=== PATIENT | male | born 1960 | race Caucasian/White ===

== ENCOUNTER 2022-06-02 07:50 | Outpatient (CLI) | payer BC, SELFPAY | END 2022-06-02 07:51 | disposition home or self-care (01) | LOC: INJ CL 07:51 | PROVIDERS: PCP Family Medicine; Visit Provider Family Medicine | DX: M53.3 Sacrococcygeal disorders, not elsewhere classified (principal) | CPT/HCPCS: 27096; J0702; Q9966 ==

== ENCOUNTER 2022-06-26 13:33 | Outpatient (CLI) | payer BC, SELFPAY ==
--- OUTSIDE RECORDS SUMMARY | 2022-06-26 13:36 | XMS_ITS | Clinical Summary ---
:1960 Author Organization [facility] [place] [address] Care Team Providers Name Role Phone Kwabena Redd MD Primary Care Provider [phone] Allergies Active Allergy Reactions Severity Noted Date Comments Citalopram Anxiety, Diaphoresis 05/28/2014 Homeopathic Products 02/28/2007 Nortriptyline Anxiety 04/25/2012 Sertraline Confusion 05/21/2014 Simvastatin Myalgia 03/21/2007 Medications Medication Sig Dispensed Refills Start End Status Date Date coenzyme q10 (CO Take 1 capsule by 0 12/14/19 Active Q-10) 100 mg Cap mouth once daily. 12 MULTIVIT-MINERALS Take 1 tablet by 0 Active /FA/LYCOPENE mouth once daily. (ONE-A-DAY MEN'S ORAL) traMADoL (ULTRAM) Take 1 Tablet (50 90 Tablet 0 12/08/19 Active 50 mg mg) by mouth 2 22 tabletIndications times daily if : Back pain needed for Pain. without radiation gabapentin Take 1 Capsule 180 capsule. 3 12/08/19 A ctive (NEURONTIN) 100 (100 mg) by mouth 22 mg once daily. Take capsuleIndication 3 capsule by s: RLS (restless mouth at bedtime legs syndrome) HYDROcodone-aceta Take 1 Tablet by 75 Tablet 0 12/08/19 Active minophen, 7.5-325 mouth 3 times 22 mg, (NORCO daily if needed 7.5-325) 7.5-325 for Pain. Max mg per acetaminophen tabletIndications dose: 4000mg in : Bulge of lumbar 24 hrs. disc without myelopathy, Lumbar facet arthropathy, Chronic midline low back pain without sciatica sildenafil Take 1 Tablet (50 30 Tablet 5 12/26/19 A ctive citrate (VIAGRA) mg) by mouth once 22 50 mg daily if needed tabletIndications for Erectile : Erectile Dysfunction. Take dysfunction of 30min to 4 hours organic origin before sexual activity. Max 100mg/24hr nitroglycerin Place 1 Tablet 25 Tablet 5 05/26/20 A ctive (NITROSTAT) 0.4 (0.4 mg) under 22 mg sublingual the tongue every tabletIndications 5 minutes if : Atypical chest needed for Chest pain Pain (x3 doses). KRILL/OM-3/DHA/EP Take 1 capsule by 0 05/12 12/10 Discontinued A/PHOSPHO/AST mouth once daily. 022 (*Med (MEGARED OMEGA-3 com plete/Regime KRILL OIL ORAL) n complete/L evel of care ch venus) Active Problems Problem Noted Date Lumbar facet arthropathy 05/09/2018 Bulge of lumbar disc without myelopathy 05/09/2018 Chest pain in adult 11/24/2017 FH: colon cancer 08/27/2014 Polymyalgia 10/08/2013 Pain medication agreement 11/22/2012 Polyp of colon Resolved Problems Problem Noted Date Resolved Date Chronic back pain greater than 3 months duration 10/08/2013 05/09/2018 No active medical problems 07/22/2011 05/09/2018 Encounters Date Type Specialty Care Team Description 06/25/2022 Travel 06/18/2022 Office Visit Daren Cortes, Musculo skeletal Problem (Follow up back pain, SI joint injection on 06/02/22) 06/18/2022 Travel 06/02/2022 Office Visit Daren Cortes Procedu re (Left SACROILIAC MD JOINT INJECTION ) 06/02/2022 Orders Only Scanner <No scans attac hed> 06/02/2022 Orders Only Scanner <No scans attac hed> 05/29/2022 Travel 05/28/2022 Travel 2022 Office Visit Kwabena Redd MD 2022 Telephone Daren Cortes Procedu re (LINNETTE order) 2022 Travel 04/17/2022 Telephone Kwabena Redd MD from Last 3 Months Immunizations Name Administration Dates Next Due HepA-HepB (Twinrix) 01/01/2014, 10/02/2013 Influenza, IIV3 (Age >=3 years) 08/17/2013, 09/06/2007 MMR 09/14/1992 Td, Preservative Free (age >= 7 Years) 02/22/2017 Tdap 09/06/2007 Zoster (Shingrix-RZV, recombinant) 12/06/2020 Family History Medical History Relation Name Comments GI Disease Brother 2 PUD Cancer Father lung Diabetes Father GI Disease Father PUD Heart Disease Father Hyperlipidemia Father Arthritis Mother Relation Name Status Comments Brother 1 Alive x5 Brother 2 Daughter 1 Alive Daughter 2 Alive Daughter 3 Alive Father (Age 79) Maternal Grandfather Maternal Grandmother Mother (Age 94) Paternal Grandfather Paternal Grandmother Sister 1 Alive Sister 2 Alive Social History Tobacco Use Types Packs/Day Years Used Date Former Smoker Cigarettes 1 10 Smokeless Tobacco: Never Used Tobacco Cessation: Counseling Given: Yes Comments: no longer has passive smoke ex posure Alcohol Use Standard Drinks/Week Comments Yes 0 (1 standard drink = 0.6 oz pure alcoho l) 4 drinks Alcohol Habits Answer Date Recorded How often do you have a drink containing 4 or more times a w [place] 10/01/2020 alcohol? How many drinks containing alcohol do you have 1 or 2 10/01/2020 on a typical day when you are drinking? How often do you have six or more drinks on one Not asked occasion? Comment: 4 drinks 12/08/2021 Sex Assigned at Date Recorded Not on file COVID-19 Exposure Response Date Recorded In the last 10 days, have you been in contact with No / Unsu re 06/18/2022 12:58 PM CDT someone who was confirmed or suspected to have Coronavirus/COVID-19? 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 Plan of Treatment Upcoming Encounters Date Type Specialty Care Team Description 06/26/2022 Office Visit Daren Cortes MD Arrived [address] [place], [place] [address] (Wo rk) Health Maintenance Due Date Last Done Comments COVID-19 vaccine series (#1) 1960 Fecal testing non-DNA 05/11/2019 05/11/2018, 02/16/2017, (FIT,FOBT,iFOBT) for age 45-75 03/07/2009 Zoster (shingles) series for age 0401/31/2021 12/06/2020 50+ (2 of 2) Influenza for age 50-64 06/11/2022 08/17/2013, 09/06/2007 BMI (ht and wt on same day) for 12/08/2022 12/08/2021, 02/03/2021, age 18+ 11/15/2020, Additional history exists Depression screening for age 12+ 12/09/2022 12/09/2021, , 12/08/2021, Additional history exists Colonoscopy through age 75 08/15/2023 08/15/2018, 9, 03/25/2009 Lipids for age 45-75 08/27/2025 08/27/2020, 07/22/2020, 10/28/2015, Additional history exists Tetanus booster 02/22/2027 02/22/2017, 09/06/2007 Tdap Completed 09/06/2007 Hepatitis C screening for age Completed 01/21/2016 18-79 Procedures Procedure Name Priority Date/Time Associated Diagnosis Comme nts AMB EPIDURAL Routine 06/26/2022 7:31 AM Bulge of lumbar disc STEROID INJECTION CDT without myelop athy Lumbar radiculop athy Chronic left SI joint pain SCAN-OPERATIVE/PROC 06/02/2022 12:00 AM R esults for this EDURE REPORT CDT procedure are i n the results section. SCAN-OPERATIVE/PROC 06/02/2022 12:00 AM R esults for this EDURE REPORT CDT procedure are i n the results section. from Last 3 Months Results SCAN-OPERATIVE/PROCEDURE REPORT (06/02/2022 12:00 AM CDT) Narrative This result has an attachment that is no t available. Scanner OTHER SCAN-OPERATIVE/PROCEDURE REPORT (06/02/2022 12:00 AM CDT) Narrative This result has an attachment that is no t available. Scanner OTHER from Last 3 Months Insurance Payer Benefit Plan / Subscriber ID Effective Phone Address T ype Group Dates [employer] WORKERS [employer] WORK[employer] COMP [id number] 2007-Pres [phone] [address] [id number] [address] [place] [address] CIGNA CIGNA HP [id number] 2013-Prese [address] [place] [address] [employer] [place] [id number] 2020-[place]se [address] [place] [address] (Work) [place] Personal/Family Self 1960 [id number] (Home) [place] [phone] (Work) [employer] Workers Comp Self [id number] (Home) [place] [id number] Advance Directives Latest Code Status on File Code Status Date Activated Date Inactivated Comments Full Code 08/15/2018 11:00 AM 08/15/2018 2:58 PM Code Status Discussion: Discussed Full Code 11/24/2017 6:16 PM 11/25/2017 2:35 PM Code Status Discussion: Not Discussed Care Teams Glycerin Operator Relationship Specialty Start Date End Date Kwabena Redd MD PCP - General Family Practice 10/15/20 [address] [address]
--- OUTSIDE RECORDS SUMMARY | 2022-06-26 13:36 | XMS_ITS ---
:1960 Author Care Team Providers Name Role Phone Eliana Cornejo Primary Care Provider Unavailable Allergies Code Code System Name Reaction Severity Status Onset NKDA ? Medications Name Status Start Date Stop Date ? ? amoxicillin 875 mg-potassium clavulanate 125 mg tablet Completed ? 06/10/2021 TAKE 1 TABLET BY MOUTH 2 TIMES DAILY WITH MEALS FOR 7 DAYS. atenolol 25 mg tablet Active ? Not availa ble doxycycline hyclate 100 mg tablet Completed ? 06/10/2021 TAKE 1 TABLET (100 MG) BY MOUTH 2 TIMES DAILY FOR 5 DAYS. gabapentin 100 mg capsule Active ? Not av ailable TAKE 3 CAPSULES BY MOUTH AT BEDTIME hydrochlorothiazide 12.5 mg capsule Active ? Not available hydrocodone 7.5 mg-acetaminophen 325 mg tablet Active ? Not available TAKE 1 TABLET BY MOUTH UP TO TWO TIMES A DAY NEEDED FOR PAIN. MAX 4000MG ACETAMINOPHEN PER 24 HOURS. nitroglycerin 0.4 mg sublingual tablet Active ? Not available tramadol 50 mg tablet Active ? Not availa ble TAKE 1 TABLET BY MOUTH EVERY 6 HOURS IF NEEDED Problems None recorded. Procedures None recorded. Results Lab Results Date Name Specimen Result Interpretation Description Value Range Status Address ? 06/10/2021 SARS CoV 2 Nose Normal Sars not not Final Qu est RNA (nasal Cov 2 detected detected Diagno stics (COVID-19), passage) RNA - W onoman Lopez QL, scientific research manager-PCR, Lab: [address], [place] 06/10/2021 Rapid SARS Nose ? Result negative ? ? [facility] CoV 2 Ag, QL (nasal Urge nt Care [place], passage) Jaime t: [facility] [address], [place] Past Encounters 06/10/2021 Exposure to SARS-CoV-2 Eliana Cornejo PA: [address], [address], [place] [address], Ph. Social History None recorded. Vaccine List None recorded. Plan of Care Patient Instructions Discussed rapid covid results with varghese ent. Patient appears well, no immediate concerns. No concern for worrisome neuro logical involvement. Patient understands and agrees with treatment plan and instructi ons. Symptom management discussed to continue OTC cough/cold/analgesic medications as needed. Medication side effects discussed. Discussed risks? benefits? alternatives? side effects of treatment. If symptoms progress or worsen, patient should proce ed to the emergency room immediately. All questions answered. Reminders Provider Appointments None recorded. ? ? Lab None recorded. ? ? Referral None recorded. ? ? Procedures None recorded. ? ? Surgeries None recorded. ? ? Imaging None recorded. ? ? Vitals Blood Pressure 145/95 mm[Hg]
== END 2022-06-26 13:34 | disposition home or self-care (01) ==
LOC: INJ CL 13:34
PROVIDERS: PCP Family Medicine; Visit Provider Family Medicine
DX: M54.16 Radiculopathy, lumbar region (principal); M51.36 Other intervertebral disc degeneration, lumbar region
CPT/HCPCS: 62323; J0702; Q9966

== ENCOUNTER 2023-07-06 07:20 | Outpatient (CLI) | payer BC, SELFPAY ==
--- OUTSIDE RECORDS SUMMARY | 2023-07-06 07:22 | XMS_ITS | Continuity of Care Document ---
Author Name Unknown Organization [facility] Address [address] [place] [address] Phone Care Team Providers Care [employer] Art Teacher Name Role Phone Shirin Freire MD Unavailable Unavailable Allergies, Adverse Reactions, Alerts Substance Reaction Status Criticality No Known allergies Medications Medication Instructions Dosage Effective Dates (start - stop) Status Comments tramadol 50 mg Tab take 2 daily - Acti ve Vicodin 5 mg-500 mg Tab 3 daily - Active Procedures Procedure Date Office/Outpatient Visit, Est Routine Venipuncture CReactive Protein Assay Of Ck (Cpk) Rbc Sed Rate, Nonautomated Advance Directives Directive Yes / No Effective Date File Name No Information Encounters Encounter Description Practice Location Reason(s) For Visit Diagnoses Date Provider Providers Copied on Encounter [facility], [address], [place], [address], [place] tel:[phone] [facility] , No Information 2 Tani Carpio. [facility] [address], [place], [address], [place]. tel:[phone] Office/Outpa tient Visit, Est [facility], [address], [place], [address], [place] tel:[phone] [facility] , muscle aches (chief complaint) Myalgia and myositis, unspecified 2 Tani Carpio. [facility] [address], [place], [address], [place]. tel:[phone] Referring Provider: Shirin Valladares, [facility] [address], [place], [address]. tel:[phone] Family History Family Member Type Diagnosis Age At Onset Brother Problem (finding) unknown progressive fabiola rologic condition Payers Payer name Insurance type Covered green party ID Authorbro fay(s) Davonte [id number] Social History Type Description Quantity Date Captured Comments Sex Male Smoking Status No Information Chief Complaint And Reason For Visit No Information Reason For Referral Reason For Referral No Information History Of Present Illness Encounter Date Complaint History Of Prese nt Illness No Information Functional Status Date Functional Assessmen t No Information Instructions Date Instruction Additional Infor mation No Information Assessments Type Assessment Date No Information Patient Care Teams Name Effective Dates (start - stop) Status Members No Information
== END 2023-07-06 07:21 | disposition home or self-care (01) ==
LOC: INJ CL 07:21
PROVIDERS: PCP Family Medicine; Visit Provider Family Medicine
DX: M54.16 Radiculopathy, lumbar region (principal); M51.36 Other intervertebral disc degeneration, lumbar region; M53.3 Sacrococcygeal disorders, not elsewhere classified
CPT/HCPCS: 27096; 62323; J0702; Q9966

== ENCOUNTER 2024-02-01 12:50 | Outpatient (CLI) | payer BC, SELFPAY ==
--- OUTSIDE RECORDS SUMMARY | 2024-02-01 12:54 | XMS_ITS | Clinical Summary ---
Author Name Unknown Organization [facility] Address [place], [place] [address] Care Team Providers Care Doughnut Dough Mixer Name Role Phone Kwabena Redd MD Primary Care Provider Allergies Active Allergy Reactions Criticality Noted Date Comments Citalopram Anxiety,Diaphoresis 05/28/2014 Homeopathic Products 02/28/2007 Nortriptyline Anxiety 04/25/2012 Sertraline Confusion 05/21/2014 Simvastatin Myalgia 03/21/2007 Medications Medication Sig Dispensed Refills Start Date End Date Status MULTIVIT-MINERALS /FA/LYCOPENE (ONE-A-DAY MEN'S ORAL) Take 1 tablet by mouth once daily. Active sildenafil citrate (VIAGRA) 50 mg tabletIndications :Erectile dysfunction of organic origin Take 1 Tablet (50 mg) by mouth once daily if needed for Erectile Dysfunction. Take 30min to 4 hours before sexual activity. Max 100mg/24hr 30 Tablet 5 12/25/2021 Active nitroglycerin (NITROSTAT) 0.4 mg sublingual tabletIndications :Atypical chest pain Place 1 Tablet (0.4 mg) under the tongue every 5 minutes if needed for Chest Pain (x3 doses). 25 Tablet 5 2022 Active HYDROcodone-aceta minophen, 7.5-325 mg, (NORCO 7.5-325) 7.5-325 mg per tabletIndications :Bulge of lumbar disc without myelopathy,Lumbar facet arthropathy,Chron ic midline low back pain without sciatica Take 1 Tablet by mouth 3 times daily if needed for Pain. Max acetaminophen dose: 4000mg in 24 hrs. 75 Tablet 02/08/2023 Active aspirin (ECOTRIN) 81 mg enteric coated tablet Take 81 mg by mouth once daily. Active lovastatin (MEVACOR) 20 mg tabletIndications :History of diplopia Take 1 Tablet (20 mg) by mouth at bedtime. 30 Tablet 2 05/10/2023 Active traMADoL (ULTRAM) 50 mg tabletIndications :Back pain without radiation TAKE 1 TABLET (50 MG) BY MOUTH 2 TIMES DAILY IF NEEDED FOR PAIN. 90 Tablet 1 06/21/2023 Active celecoxib (CELEBREX) 200 mg capsuleIndication s:Lumbar facet arthropathy TAKE 1 CAPSULE (200 MG) BY MOUTH TWO TIMES DAILY WITH MEALS. 180 Capsule 1 08/27/2023 Active Active Problems Problem Noted Date Diagnosed Date Lumbar facet arthropathy 05/09/2018 Bulge of lumbar disc without myelopathy 05/09/20 18 Chest pain in adult 11/24/2017 FH: colon cancer 08/27/2014 Polymyalgia 10/08/2013 Pain medication agreement 11/22/2012 Polyp of colon Resolved Problems Problem Noted Date Diagnosed Date Resolved Date Chronic back pain greater th an 3 months duration 10/08/2013 05/09/2018 No active medical problems 07/22/2011 0 05/09/2018 Encounters Date Type Department Care Team Description 02/01/2024 Travel 01/27/2024 Telephone [facility] [address] [place], [place] [id number] Daren Cortes MD Injection (Medication) (Back) 11/25/2023 9:45 AM [employer] Ancillary Procedure [facility] [address] [place] [phone] 11/25/2023 9:15 AM [employer] Office Visit [facility] [address] [place] [address] Austin Chavez DPM Consult (Left heel pain) 11/25/2023 Travel from Last 3 Months Immunizations Name Administration Dates Next Due HepA-HepB (Twinrix) 01/01/2014,10/02/2013 Influenza, IIV3 (Age >=3 years) 08/17/2013,09/06 MMR 09/14/1992 Td, Preservative Free (age >= 7 Years) 7 Tdap 09/06/2007 Zoster (Shingrix-RZV, recombinant) 12/06/2020 Family [...] Tobacco Use Types Packs/Day Years Used Date Smoking Tobacco: Former Cigarettes 1 10 Smokeless Tobacco: Never Tobacco Cessation:Counseling Given: Yes Comments:no longer has passive smoke exposure Alcohol Use Standard Drinks/Week Comments Yes 0 (1 standard drink = 0.6 oz pur e alcohol) 4 drinks PHQ-2 Answer Date Recorded PHQ-2 TOTAL SCORE 1 04/12/2023 Social Connections Answer Date Recorded Frequency of Communication with Friends and Fami ly 0 04/12/2023 Financial Resource Strain Answer Date R ecorded Difficulty of Paying Living Expenses 3 04/12/2023 Difficulty of Paying Living Expenses Not on file 04/12/2023 Food Insecurity Answer Date Recorded Worried About Running Out of Food in the Last Ye ar 1 04/12/2023 Transportation Needs Answer Date Record ed Lack of Transportation (Medical) 1 04/12/2023 Housing Stability Answer Date Recorded Unable to Pay for Housing in the Last Year 1 04/12/2023 Sex and Gender Information Value Date Recorded Sex Assigned at Not on file Gender Identity Not on file Sexual Orientation Not on file Obstetrics History Last Filed Vital Signs Vital Sign Reading Time Taken Comments Blood Pressure 145/93 06/22/2023 10:15 AM CDT Pulse 77 11/25/2023 9:06 AM [employer] Temperature 36.6 ??C (97.9 ??F) 02/08/2023 8:05 AM CD T Respiratory Rate 20 2022 1:48 PM CDT Oxygen Saturation 96% 11/25/2023 9:06 AM [employer] Inhaled Oxygen Concentration - - Weight 88.5 kg (195 lb) 11/25/2023 9:06 AM [employer] Height 175.3 cm (5' 9) 06/22/2023 10:15 AM CDT Body Mass Index 28.8 06/22/2023 10:15 AM CDT Plan of Treatment Upcoming Encounters Date Type Department Care Team (Late st Contact Info) Description 02/01/2024 1:20 PM CDT Office Visit [facility] [address] [place] [phone] Daren Cortes MD [address] [place] [address] Arrived 03/30/2024 10:40 AM CDT Office Visit [facility] [address] [place] [address] Daren Cortes MD [address] [place] [address] Health Maintenance Due Date Last Done Comments HIV for age 15-65 1974 Zoster (shingles) series for age 50+ (2 of 2) 01/31/2021 12/06/2020 COVID-19 vaccine series (2022- season) 2023 Colonoscopy through age 75 08/15/202308/15, 03/25/2009, 03/25/2009 Depression screening for age 12+ 04/12/2024 04/12/2023, 12/09/2021, 12/08/2021, Additional history exists Influenza for age 50-64 06/11/2024 08/17/2013, 09/06 BMI (ht and wt on same day) for age 18+ 06/22/2024 06/22/2023, 05/10/2023, 04/12/2023, Additional history exists Lipids for age 45-75 08/27/2025 08/27/2020, 07/22/2020, 10/28/2015, Additional history exists Tetanus booster 02/22/2027 02/22/2017, 09/06/2007 Tdap Completed 09/06/2007 Hepatitis C screening for age 18-79 Completed 01/21/2016 Fecal testing non-DNA (FIT,FOBT,iFOBT) for age 45-75 Discontinued 05/11/2018, 02/16/2017, 03/07/2009 Pneumococcal series for age 6-64 Aged Out No longer eligible based on patient's age to complete this topic Procedures Procedure Name Priority Date/Time Associated Diagnosis Comments AMB EPIDURAL STEROID INJECTION Routine 02/01/2024 8:01 AM CDT Lumbar facet arthropathy Bulge of lumbar disc without myelopathy Chronic left SI joint pain Lumbar radiculopathy XR CALCANEUS 2 VIEWS LEFT Routine 11/25/2023 9:44 AM [employer] Pain of left heel LIPID PANEL W REFLEX MEASURED LDL Routine 08/27/2020 9:02 AM [employer] Cerebrovascular disease Sleep disturbance Memory problem Diplopia COLONOSCOPY 08/15/2018 11:02 AM [employer] OCCULT BLOOD IFOBT STOOL Routine 05/11/2018 8:00 AM CDT Screening for colon cancer ANTI HCV Routine 01/21/2016 2:48 PM CDT Need for hepatitis C screening test from Last 3 Months or Most Recently Relevant to Health Maintenance Results * XR CALCANEUS 2 VIEWS LEFT (11/25/2023 9:44 AM [employer]) Anatomical Region Laterality Modality CALCANEI, CALCANEUS L Computed R adiography Narrative 11/30/2023 10:13 AM [employer] INDICATION: Heel pain. TECHNIQUE: Three views left calcaneus. FINDINGS: No fracture or dislocation. No joint arthropathy or bone destruction. Minimal hyper trophic bone reaction at the Achilles tendon insertion. No soft tissue calcifications. Dictated by Barrington Chau MD @ 11/25/2023 9:59:03 AM Signed by: Barrington Chau MD @11/25/2023 9:59:03 AM (Electronic Signature) Austin Chavez DPM GENERAL IMAGING * LIPID PANEL W REFLEX MEASURED LDL (08/27/2020 9:02 AM [employer]) CHOLESTEROL,TOTAL 190 100 - 199 mg/dL 08/27/2020 9:42 AM [employer] [facility] TRIGLYCERIDES 89 <150 mg/dL 08/27/2020 9:42 AM [employer] [facility] HDL CHOLESTEROL 58 >40 mg/dL 0 9:42 AM [employer] [facility] NON-HDL CHOLESTEROL 132 <145 mg/dl 08/27/2020 9:42 AM [employer] [facility] CHOL/HDL RATIO 3.28 <4.50 08/27/2020 9:42 AM [employer] [facility] LDL CHOLESTEROL 114 <=130 mg/dL 08/27/2020 9:42 AM [employer] [facility] PROVIDER ORDERED STATUS RANDOM 08/27/2020 9:42 AM [employer] [facility] Blood BLOOD SPECIMEN / Unknown Venipuncture / Unknown 08/27/2020 9:02 AM [employer] 08/27/2020 9:04 AM [employer] Narrative Authorizing Provider Result Beny Dunham MD CHEMISTRY Performing Organization Address City/State/[facility] Co de Phone Number [facility] [address] [place] [address] * COLONOSCOPY (08/15/2018 11:02 AM [employer]) 08/15/2018 11:0 2 AM [employer] Narrative Transcriptions True Adan DO - 08/15/2018 11:41 AM CST Patient Name: Pillo Blow Procedure Date: 08/15/2018 Gender: Male Date of : 1960 Admit Type: Ambulatory Procedure: Colonoscopy Proceduralist: True Adan MD [facility] Indications/Pre-Op Diagnosis: Screening for colorectal malignant neoplasm, Last colonoscopy 10 years ago Medications: Propofol per Anesthesia Procedure Description: The patient had risks, benefits and alternatives explained to andgave informed consent. The patient had a stable cardiopulmonary status and judged an adequate candidate for conscious sedation. The colonoscope was passed through the anus and advanced to thececum, identified by appendiceal orifice and ileocecal valve. Thecolonoscopy was performed without difficulty. The patient tolerated the procedure well. The quality of the bowel preparation was good. The ileocecal valve, appendiceal orifice, and rectum were photographed. Complications: No immediate complications. Estimated Blood Loss & Specimen: Estimated blood loss: none. Specimen collected - Yes and sent to Laboratory Findings: A 5 mm polyp was found in the hepatic flexure. The polyp was sessile. The polyp was removed with a hot snare. Resection and retrieval were complete. Verification of patient identification for the specimen was done. Estimated blood loss was minimal. Non-bleeding internal hemorrhoids were found during retroflexion. The hemorrhoids were Grade II (internal hemorrhoids that prolapse butreduce spontaneously). Impressions/Post-Op Diagnosis: - One 5 mm polyp at the hepatic flexure, removed with a hot snare. Resected and retrieved. - Non-bleeding internal hemorrhoids. Recommendation: - Discharge patient to home. - Patient has a contact number available for emergencies. The signsand symptoms of potential delayed complications were discussed with the patient. Return to normal activities tomorrow. Written discharge instructions were provided to the patient. - High fiber diet. - Continue present medications. - Await pathology results. - Repeat colonoscopy in 5-10 years for surveillance. Moderate Sedation: Moderate (conscious) sedation was personally administered by an anesthesia professional. The following parameters were monitored:oxygen saturation, heart rate, blood pressure, and response to care. True Adan MD 08/15/2018 11:41:54 AM This report has been signed electronically. Note Initiated On: 08/15/2018 11:02 AM True Adan DO PROCEDURE ORD * OCCULT BLOOD IFOBT STOOL (05/11/2018 8:00 AM CDT) STOOL BLOOD ,IFOBT Negative Negative 05/12/2018 2:46 PM CDT [facility] Stool STOOL SPECIMEN / Unknown Non-Blood / Unknown 05/11/2018 8:00 AM CDT 05/12/2018 2:13 PM CDT Vaughn Dunham MD LABORATORY [facility] [address] [place] [address] * ANTI HCV [12115.2] (01/21/2016 2:48 PM CDT) HEPATITIS C ANTIBODY Non-Reacti ve Non-Reacti ve 01/21/2016 8:15 PM CDT [facility] Blood specimen (specimen) BLOOD SPECIMEN / Unknown Venipuncture / Unknown 01/21/2016 2:48 PM CDT 01/21/2016 2:48 PM CDT Narrative [facility] - 01/21/2016 8:15 PM CDT Antibodies to HCV not detected; does not exclude the possibility of exposure to HCV. Vaughn Dunham MD SEND OUTS [facility] [address] [place] [address], [place] from Last 3 Months or Most Recently Relevant to Health Maintenance Advance Directives * Full Code (Latest Code Status on File) Date Activated Date Inactivated Comments 08/15/2018 11:00 AM 08/15/2018 2:58 PM Question Answer Comments Code Status Discussion: Discussed * Full Code Date Activated Date Inactivated Comments 11/24/2017 6:16 PM 11/25/2017 2:35 PM Question Answer Comments Code Status Discussion: Not Discussed Care Teams [employer] Mixer Relationship Specialty Start Date End Date Kwabena Redd MD [address] [place] [address] PCP - General Family Practice 10/15/20
--- OUTSIDE RECORDS SUMMARY | 2024-02-01 12:54 | XMS_ITS | Continuity of Care Document ---
Author Name Unknown Organization [facility] Address [address] [place] [address] Phone Care Team Providers Care Pediatric Rn Name Role Phone Shirin Freire MD Unavailable [...] [facility], [address], [place], [address], [place] tel:[phone] [facility] , No Information 2 Tani Carpio. [facility] [address], [place], [address], [place]. tel:[phone] Office/Outpa tient Visit, Est [facility], [address], [place], [address], [place] tel:[phone] [facility] , muscle aches (chief complaint) Myalgia and myositis, unspecified 2 Tani Carpio. [facility] [address], [place], [address], [place]. tel:[phone] Referring Provider: Shirin Valladares, [facility] [address], [place], [address]. tel:[phone] Family History Family Member Type Diagnosis Age At Onset Brother Problem (finding) unknown progressive fabiola rologic condition Payers Payer name Insurance type Covered democrat ID Authorbro fay(s) [id number] Social History Type Description Quantity Date Captured [...]
== END 2024-02-01 12:51 | disposition home or self-care (01) ==
LOC: INJ CL 12:51
PROVIDERS: PCP Family Medicine; Visit Provider Family Medicine
DX: M54.16 Radiculopathy, lumbar region (principal); M51.36 Other intervertebral disc degeneration, lumbar region; M53.3 Sacrococcygeal disorders, not elsewhere classified
CPT/HCPCS: 27096; 62323; J0702; Q9966